=== PATIENT | female | born 1965 | race African-American/Black ===

== ENCOUNTER → 2017-11-07 | Outpatient (CLI) | payer BC ==
[~2017-11-07] MED LIST: IOPAMIDOL 370 MG/ML 200 ML INFUS..BTL INJ ONE; SODIUM CHLORIDE 0.9% 50ML 50 ML ONE
--- NOTE | 2017-11-07 09:48 | Diagnostic Imaging Report ---
PROCEDURE: CT scan of the chest WITH intravenous contrast, using standard protocol. TECHNIQUE: The chest was scanned utilizing a multidetector helical scanner from the lung apex through the level of the adrenal glands after the IV administration of 100 cc of Isovue 370. Coronal and sagittal multiplanar reformations were obtained. COMPARISON: None. INDICATIONS: LUNG NODULE FINDINGS: Lines/tubes: None. Lungs and Airways: Small focus of right apical parenchymal scar. Scattered juxtapleural reticular opacities most notably in the dependent lower lobes likely reflect subsegmental atelectasis. 6 mm solid nodule along the left major fissure seen on series 3 image 28. 5 mm groundglass nodule seen medially within the same image. No consolidation, honeycombing, or gross mass lesion. Trachea, mainstem bronchi, and central lobar and segmental bronchi are patent. Pleura: No pleural effusion or pneumothorax. Heart and mediastinum: The visualized portions of the thyroid gland are unremarkable. No axillary, hilar, or mediastinal lymphadenopathy. Pulmonary outflow tract is of normal caliber. No central pulmonary embolus. No ectasia or aneurysmal dilatation of the thoracic aorta. No pericardial effusion. Soft tissues: No focal soft tissue abnormalities. Abdomen: Visualized portions of the liver, gallbladder, spleen, pancreas, and adrenal glands are unremarkable. Bones: No osseous destructive lesions. IMPRESSION: Adjacent 5 mm groundglass and 6 mm solid nodules in the region of the left major fissure which may represent intrapulmonary lymph nodes. Per Fleischner Society 2017 guidelines, followup CT scan of the chest is suggested in 3-6 months to assess for stability. Dictated by: Calixto Burgos M.D. on 11/07/2017 at 9:57 Electronically approved by: Calixto Burgos M.D. on 11/07/2017 at 9:57
== END ==
LOC: CT 07:25
PROVIDERS: ATTEND Internal Medicine
DX: R91.1 Solitary pulmonary nodule (principal)
CPT/HCPCS: 71260; Q9967